=== PATIENT | male | born 1975 | race Caucasian/White ===

== ENCOUNTER 2018-09-20 17:57 | Emergency (ER) | payer SELFPAY ==
[2018-09-20 20:31] LABS: Absolute Lymphocytes (CBC) 2.6 K/uL (0.7-4.9); Absolute Monocytes 0.9 K/uL (0.1-1.3); Absolute Neutrophil 5.7 K/uL (1.8-8.0); Basophils % 1.2 % (0-1.3); Eosinophils % 3.1 % (0-4.4); Hematocrit 42.7 % (39.6-49.0); MPV 7.4 fL (7.6-11.3); Monocytes % 9.1 % (3.3-12.3)
[2018-09-20 20:48] LABS: BUN Blood Urea Nitrogen 10 mg/dL (7-18); Bicarbonate 31 mmol/L (21-32); Glucose Level 93 mg/dL (74-106); Potassium 4.3 mmol/L (3.5-5.1); Sodium Level 141 mmol/L (136-145)
--- NOTE | 2018-09-20 20:50 | RAD REPORT ---
EXAM DESCRIPTION: US - Extremity Nonvascular Limited - 09/20/2018 8:37 pm CLINICAL HISTORY: Right forearm mass COMPARISON: None FINDINGS: Patient has a palpable area within the right forearm. Ultrasound demonstrates a 5 millimeter heterogeneous structure with increased blood flow. This probab ly represents a lymph node. Edema is seen within the surrounding subcutaneous tissue. IMPRESSION: 5 millimeter palpable mass within the right forearm probably represents an inflamed/infe cted lymph node. Follow-up ultrasound in 1 month would be helpful to assess stability/resolution
[2018-09-20] MEDS ORDERED: CLINDAMYCIN 900MG/D5W 900 MG/50 ML IVPB IV ONE (21:25)
--- NOTE | 2018-09-20 21:52 | EDPHYS ---
Physician Documentation [facility] Name: Sean Gaffney Age: 43 yrs Sex: Male : 1975 Arrival Date: 09/20/2018 Time: 17:59 Bed 30 Private MD: ED Physician Theodore Moon HPI: 09/20 20:26 This 43 yrs old Male presents to ER via Ambulatory with complaints of Abscess.jmm 20:26 the patient presents with a swollen area of the right arm. Onset: The symptoms/episode jmm began/occurred gradually, 1 week(s) ago. Possible cause(s): unknown. This is a 43 year old male that presents to the ED with complaints of swelling and redness to his right forearm. Patient states having contact dermatitis approx 2 week ago which has not fully healed. . Historical: - Allergies: 18:04 No Known Allergies; tw2 - Home Meds: 18:04 None [Active]; tw2 - PMHx: 18:04 Seizures; tw2 - PSHx: 18:04 Hernia repair; tw2 - Immunization history:: Adult Immunizations unknown. - Social history:: Smoking status: Patient uses tobacco products, smokes one pack cigarettes per day. Patient uses alcohol, only on a social basis. - Ebola Screening: : Patient denies travel to an Ebola-affected area in the 21 days before illness onset. ROS: 20:26 Constitutional: Negative for fever, chills, and weight loss, Cardiovascular: Negative jmm for chest pain, palpitations, and edema, Respiratory: Negative for shortness of breath, cough, wheezing, and pleuritic chest pain. 20:26 Skin: Positive for erythema. 20:26 All other systems are negative. Exam: 20:26 Constitutional: This is a well developed, well nourished patient who is awake, alert, jmm and in no acute distress. Head/Face: atraumatic. Eyes: EOMI, no conjunctival erythema appreciated ENT: Moist Mucus Membranes Neck: Trachea midline, Supple Chest/axilla: Normal chest wall appearance and motion. Cardiovascular: Regular rate and rhythm. No edema appreciated Respiratory: Normal respirations, no respiratory distress appreciated Abdomen/GI: Non distended, soft Back: Normal ROM 20:26 Skin: multiple erythematous lesions noted to the right forearm, an area of erythema is noted to the mid forearm on the palmar side, TTP, full radial pulse, NVI. 20:26 Neuro: Orientation: is normal, Mentation: is normal, Memory: is normal. 20:26 Psych: Behavior/mood is pleasant, cooperative. Vital Signs: 18:03 BP 137 / 87; Pulse 88; Resp 17; Temp 98.5(O); Pulse Ox 99% on R/A; Weight 77.11 kg (R); tw2 Height 5 ft. 8 in. (172.72 cm); Pain 8/10; 21:56 BP 125 / 83; Pulse 79; Resp 18; Temp 98.3; Pulse Ox 99% ; rv 18:03 Body Mass Index 25.85 (77.11 kg, 172.72 cm) tw2 MDM: 20:04 Patient medically screened. [facility] 21:48 Data reviewed: vital signs, nurses notes. Counseling: I had a detailed discussion with [facility] the patient and/or guardian regarding: the historical points, exam findings, and any diagnostic results supporting the discharge/admit diagnosis, lab results, radiology results, the need for outpatient follow up, to return to the emergency department if symptoms worsen or persist or if there are any questions or concerns that arise at home. 09/20 20:05 Order name: CBC with Diff; Complete Time: 20:34 [facility] 09/20 20:05 Order name: BMP; Complete Time: 21:09 [facility] 09/20 20:05 Order name: Procalcitonin; Complete Time: 21:49 [facility] 09/20 20:05 Order name: Saline Lock; Complete Time: 21:20 [facility] 09/20 20:06 Order name: US Extrmty Nonvasular Limited; Complete Time: 21:09 [facility] Administered Medications: 21:20 Drug: Clindamycin 900 mg Route: IVPB; Infused Over: 30 mins; Site: left forearm; rv 21:55 Follow up: IV Status: Completed infusion; IV Intake: 50ml rv Disposition: 22:51 Co-signature as Attending Physician, Theodore Moon MD. Disposition: 09/20/18 21:50 Discharged to Home. Impression: Localized enlarged lymph nodes, Cellulitis of right upper limb. - Condition is Stable. - Discharge Instructions: Cellulitis, Adult, Lymphadenopathy. - Prescriptions for Clindamycin HCl 300 mg Oral Capsule - take 1 capsule by ORAL route every 6 hours for 10 days; 40 capsule. - Medication Reconciliation Form, Thank You Letter, Antibiotic Education, Prescription Opioid Use form. - Follow up: Private Physician; When: 2 - 3 days; Reason: Recheck today's complaints, Continuance of care, Re-evaluation by your physician. Signatures: Dispatcher [employer] EDMS Sohan Fraga PA PA jmm Wise, Tara, RN RN tw2 Theodore Moon MD MD Jai Watt RN RN rv Corrections: (The following items were deleted from the chart) 21:56 21:50 09/20/2018 21:50 Discharged to Home. Impression: Localized enlarged lymph nodes; rv Cellulitis of right upper limb. Condition is Stable. Forms are Medication Reconciliation Form, Thank You Letter, Antibiotic Education, Prescription Opioid Use. Follow up: Private Physician; When: 2 - 3 days; Reason: Recheck today's complaints, Continuance of care, Re-evaluation by your physician. ino
--- NOTE | 2018-09-20 21:52 | ER ---
Nurse's Notes [facility] Name: Sean Gaffney Age: 43 yrs Sex: Male : 1975 Arrival Date: 09/20/2018 Time: 17:59 Bed 30 Private MD: Diagnosis: Localized enlarged lymph nodes;Cellulitis of right upper limb Presentation: 09/20 18:02 Presenting complaint: Patient states: 2 or 3 days ago i felt it but now it has just tw2 gotten bigger and bigger and is painful, to my inner RIGHT arm. Presenting complaint: Patient states: "i had poison oak and i pick and scratch a lot". Transition of care: patient was not received from another setting of care. Onset of symptoms was September 20, 2018. Risk Assessment: Do you want to hurt yourself or someone else? Patient reports no desire to harm self or others. Initial Sepsis Screen: Does the patient meet any 2 criteria? No. Patient's initial sepsis screen is negative. Does the patient have a suspected source of infection? No. Patient's initial sepsis screen is negative. Care prior to arrival: None. 18:02 Method Of Arrival: Ambulatory tw2 18:02 Acuity: CHRISTINE 4 tw2 18:06 Note b/l arms have multiple sores in various stages of healing. tw2 Triage Assessment: 18:04 General: Appears in no apparent distress. Behavior is calm, cooperative, appropriate tw2 for age. Pain: Complains of pain in dorsal aspect of right forearm and palmar aspect of right forearm. Derm: Abscess located on dorsal aspect of right forearm and palmar aspect of right forearm is quarter sized, is hot to touch, is red, is raised. Historical: - Allergies: 18:04 No Known Allergies; tw2 - Home Meds: 18:04 None [Active]; tw2 - PMHx: 18:04 Seizures; tw2 - PSHx: 18:04 Hernia repair; tw2 - Immunization history:: Adult Immunizations unknown. - Social history:: Smoking status: Patient uses tobacco products, smokes one pack cigarettes per day. Patient uses alcohol, only on a social basis. - Ebola Screening: : Patient denies travel to an Ebola-affected area in the 21 days before illness onset. Screenin:36 Abuse screen: Denies threats or abuse. Denies injuries from another. Nutritional rv screening: No deficits noted. Tuberculosis screening: No symptoms or risk factors identified. Fall Risk None identified. Assessment: 19:35 General: Appears in no apparent distress. comfortable, Behavior is calm, cooperative. rv Pain: Complains of pain in right arm. Neuro: Level of Consciousness is awake, alert, obeys commands, Oriented to person, place, time, situation. Cardiovascular: Patient's skin is warm and dry. Respiratory: Airway is patent. GI: No signs and/or symptoms were reported involving the gastrointestinal system. : No signs and/or symptoms were reported regarding the genitourinary system. EENT: No signs and/or symptoms were reported regarding the EENT system. Derm: Abscess located on right arm has no drainage, is hot to touch, is red, is raised. Musculoskeletal: No signs and/or symptoms reported regarding the musculoskeletal system. Vital Signs: 18:03 BP 137 / 87; Pulse 88; Resp 17; Temp 98.5(O); Pulse Ox 99% on R/A; Weight 77.11 kg (R); tw2 Height 5 ft. 8 in. (172.72 cm); Pain 8/10; 21:56 BP 125 / 83; Pulse 79; Resp 18; Temp 98.3; Pulse Ox 99% ; rv 18:03 Body Mass Index 25.85 (77.11 kg, 172.72 cm) tw2 ED Course: 17:59 Patient arrived in ED. mr 18:03 Triage completed. tw2 18:05 Arm band placed on. tw2 19:35 Jai Watt, RN is Primary Nurse. rv 19:36 Patient has correct armband on for positive identification. Bed in low position. Call rv light in reach. Side rails up X 1. Pulse ox on. NIBP on. 19:56 Sohan Fraga PA is PHCP. m 19:56 Theodore Moon MD is Attending Physician. jmm 20:36 US Extrmty Nonvasular Limited In Process Unspecified. EDMS 21:20 Inserted saline lock: 22 gauge in left forearm, using aseptic technique. rv 21:56 No provider procedures requiring assistance completed. IV discontinued, intact, rv bleeding controlled, No redness/swelling at site. Pressure dressing applied. Administered Medications: 21:20 Drug: Clindamycin 900 mg Route: IVPB; Infused Over: 30 mins; Site: left forearm; rv 21:55 Follow up: IV Status: Completed infusion; IV Intake: 50ml rv Intake: 21:55 IV: 50ml; Total: 50ml. rv Outcome: 21:50 Discharge ordered by MD. mckinnon 21:56 Discharged to home ambulatory. rv 21:56 Condition: good 21:56 Discharge instructions given to patient, family, Instructed on discharge instructions, follow up and referral plans. medication usage, Demonstrated understanding of instructions, follow-up care, medications, Prescriptions given X 1. 21:56 Patient left the ED. rv Signatures: Dispatcher [employer] EDMS Sohan Fraga PA PA jmm Rivera, Mary mr Farideh Shelby RN RN tw2 Jai Watt RN RN rv
== END 2018-09-20 21:56 | disposition home or self-care (01) ==
LOC: ER 17:57
DX: L03.113 Cellulitis of right upper limb (principal); F17.210 Nicotine dependence, cigarettes, uncomplicated
CPT/HCPCS: 36415; 76882; 80048; 84145; 85025; 96365; 99284

== ENCOUNTER 2019-02-21 18:20 | Emergency (ER) | payer SELFPAY ==
[2019-02-21 19:59] LABS: Absolute Lymphocytes (CBC) 1.2 K/uL (0.7-4.9); Basophils % 0.5 % (0-1.3); Hematocrit 41.1 % (39.6-49.0); Lymphocytes % 11.3 % (15.3-44.8); MPV 7.9 fL (7.6-11.3); RBC Red Blood Cell Count 4.58 M/uL (4.33-5.43)
--- NOTE | 2019-02-21 20:19 | RAD REPORT ---
EXAM DESCRIPTION: Ribs Right - 02/21/2019 8:06 pm CLINICAL HISTORY: Right rib injury COMPARISON: None. FINDINGS: No displaced rib fracture is evident. No aggressive rib lesion. No underlying pneumothorax, effusion, infiltrate or pulmonary contusion. IMPRESSION: Negative right rib series.
[2019-02-21 20:26] LABS: ALT/SGPT 57 U/L (12-78); AST/SGOT 38 U/L (15-37); Alkaline Phosphatase 87 U/L (45-117); BUN Blood Urea Nitrogen 8 mg/dL (7-18); Bicarbonate 28 mmol/L (21-32); Bilirubin Direct 0.2 mg/dL (0-0.2); Bilirubin Total 0.5 mg/dL (0.2-1.0); Glucose Level 95 mg/dL (74-106); Sodium Level 142 mmol/L (136-145)
[2019-02-21 21:50] LABS: Protime INR 0.97
--- NOTE | 2019-02-21 22:00 | ER ---
Nurse's Notes [facility] Name: Sean Gaffney Age: 44 yrs Sex: Male : 1975 Arrival Date: 02/21/2019 Time: 18:29 Bed 4 Private MD: Diagnosis: Rib Contusion Presentation: 02/21 18:41 Presenting complaint: EMS states: pt went to check on a friend, PD was called out for iw trespassing, pt was uncooperative on scene, was restrained by police, had syringes on him, admitted to meth and ETOH use today, started c/o difficulty breathing, pt in NAD, VSS, appears to be sleeping, awakens easily to verbal stimuli. Transition of care: patient was not received from another setting of care. Onset of symptoms was February 21, 2019. Risk Assessment: Do you want to hurt yourself or someone else? Patient reports no desire to harm self or others. Initial Sepsis Screen: Does the patient meet any 2 criteria? No. Patient's initial sepsis screen is negative. Does the patient have a suspected source of infection? No. Patient's initial sepsis screen is negative. Care prior to arrival: Medication(s) given: Normal saline infusion, 500 mL, IV initiated. 18 GA, in the right antecubital area. 18:41 Method Of Arrival: EMS: [facility] iw 18:41 Acuity: CHRISTINE 3 iw Triage Assessment: 21:33 General: Appears in no apparent distress. unkempt, Behavior is drowsy. Respiratory: ak1 Reports shortness of breath at rest on exertion Onset: The symptoms/episode began/occurred at an unknown time. the patient has mild shortness of breath. Historical: - Allergies: 18:43 No Known Allergies; iw - Home Meds: 18:43 None [Active]; iw - PMHx: 18:43 Seizures; PTSD; iw - PSHx: 18:43 Hernia repair; iw - Immunization history:: Adult Immunizations unknown. - Ebola Screening: : Patient negative for fever greater than or equal to 101.5 degrees Fahrenheit, and additional compatible Ebola Virus Disease symptoms Patient denies exposure to infectious person Patient denies travel to an Ebola-affected area in the 21 days before illness onset No symptoms or risks identified at this time. - Social history:: Smoking status: unknown Patient uses street drugs, Methamphetamine (Meth). Screenin:37 Abuse screen: Denies threats or abuse. Denies injuries from another. Nutritional ak1 screening: No deficits noted. Tuberculosis screening: No symptoms or risk factors identified. Fall Risk None identified. Assessment: 19:37 General: Appears in no apparent distress. Behavior is drowsy. Pain: Complains of pain ak1 in ribs. Neuro: Level of Consciousness is alert, obeys commands, Oriented to person, place, time, situation, Lamination Spinner are equal bilaterally Speech is normal. Cardiovascular: No deficits noted. Respiratory: Airway is patent Respiratory effort is even, unlabored, Breath sounds are clear. GI: No signs and/or symptoms were reported involving the gastrointestinal system. : No signs and/or symptoms were reported regarding the genitourinary system. EENT: No signs and/or symptoms were reported regarding the EENT system. Derm: multiple healing wounds to body. Musculoskeletal: No signs and/or symptoms reported regarding the musculoskeletal system. 21:34 Reassessment: Patient appears in no apparent distress at this time. pt has been asked ak1 to urinate 3 separate times, urinal at bedside. Vital Signs: 18:43 BP 121 / 101; Pulse 89; Resp 16 S; Temp 98.9; Pulse Ox 98% on R/A; Weight 74.84 kg; iw Height 5 ft. 9 in. (175.26 cm); 20:37 BP 114 / 80; Pulse 91; Resp 14; Pulse Ox 98% on R/A; ak1 21:32 BP 126 / 99; Pulse 95; Resp 16; Pulse Ox 97% on R/A; ak1 18:43 Body Mass Index 24.37 (74.84 kg, 175.26 cm) ED Course: 18:29 Patient arrived in ED. iw 18:43 Triage completed. iw 18:43 Arm band placed on. 19:03 Sohan Fraga PA is PHCP. [facility] 19:03 Javier Huddleston MD is Attending Physician. [facility] 19:21 Marilou Bae, RN is Primary Nurse. ak1 19:37 Patient has correct armband on for positive identification. Bed in low position. TRESA YAÑEZ ak1 officer at bedside. 19:37 Initial lab(s) drawn, by me, sent to lab. EKG done, by ED staff, reviewed by Javier Huddleston MD. Inserted saline lock: 22 gauge in right hand, using aseptic technique. Blood collected. 18G to right AC from EMS infiltrated. 20:06 Ribs Right XRAY In Process Unspecified. EDMS 21:32 Notified Nurse Practitioner and/or Physician Line Service Technician of a critical lab result(s), [facility] Rapid HIV negative. 22:18 No provider procedures requiring assistance completed. ak1 22:18 IV discontinued, intact, bleeding controlled, No redness/swelling at site. Pressure ak1 dressing applied. Administered Medications: No medications were administered Outcome: 21:58 Discharge ordered by . ino 22:18 Discharged to Law Enforcement ak1 22:18 Condition: improved 22:18 Discharge instructions given to police, Instructed on discharge instructions, follow up and referral plans. Demonstrated understanding of instructions, follow-up care. 22:18 Patient left the ED. ak1 Signatures: Dispatcher [employer] EDMS Sohan Fraga PA PA jmm Chretien, Felicia, RN RN fc Williams, Irene, RN RN Marilou Bae RN RN ak1
--- NOTE | 2019-02-21 22:00 | EDPHYS ---
Physician Documentation [facility] Name: Sean Gaffney Age: 44 yrs Sex: Male : 1975 Arrival Date: 02/21/2019 Time: 18:29 Bed 4 Private MD: ED Physician Javier Huddleston HPI: 02/21 19:13 This 44 yrs old Male presents to ER via EMS with complaints of Breathing jmm Difficulty, Drug Abuse. 19:13 The patient or guardian reports chest pain that is located primarily in the left jmm lateral anterior chest and left lateral posterior chest. Onset: The symptoms/episode began/occurred acutely, just prior to arrival. The pain does not radiate. This is a 44 year old male with a history of seizures, PTSD that presents to the ED with complaints of right sided rib pain. Patient was retrained by PD. Patient then developed SOB. . Patient states having possession of needles but denies sharing needles with others. . Historical: - Allergies: 18:43 No Known Allergies; iw - Home Meds: 18:43 None [Active]; iw - PMHx: 18:43 Seizures; PTSD; iw - PSHx: 18:43 Hernia repair; iw - Immunization history:: Adult Immunizations unknown. - Ebola Screening: : Patient negative for fever greater than or equal to 101.5 degrees Fahrenheit, and additional compatible Ebola Virus Disease symptoms Patient denies exposure to infectious person Patient denies travel to an Ebola-affected area in the 21 days before illness onset No symptoms or risks identified at this time. - Social history:: Smoking status: unknown Patient uses street drugs, Methamphetamine (Meth). ROS: 19:13 Constitutional: Negative for fever, chills, and weight loss. jmm 19:13 Abdomen/GI: Negative for abdominal pain, nausea, vomiting, diarrhea, and constipation, Back: Negative for injury and pain. 19:13 Cardiovascular: Positive for chest pain, with movement. 19:13 Respiratory: Positive for shortness of breath. 19:13 All other systems are negative. Exam: 19:13 Head/Face: atraumatic. Eyes: EOMI, no conjunctival erythema appreciated ENT: Moist jmm Mucus Membranes Neck: Trachea midline, Supple 19:13 Cardiovascular: Regular rate and rhythm. No edema appreciated Respiratory: Normal respirations, no respiratory distress appreciated Abdomen/GI: Non distended, soft Back: Normal ROM MS/ Extremity: Moves all extremities, no obvious deformities appreciated, no edema noted to the lower extremities Neuro: Awake and alert, normal gait Psych: Behavior is normal, Mood is normal, Patient is cooperative and pleasant 19:13 Constitutional: The patient appears in no acute distress, alert, awake. 19:13 Chest/axilla: Palpation: tenderness, that is moderate, of the left lateral anterior chest and left lateral posterior chest. Vital Signs: 18:43 BP 121 / 101; Pulse 89; Resp 16 S; Temp 98.9; Pulse Ox 98% on R/A; Weight 74.84 kg; iw Height 5 ft. 9 in. (175.26 cm); 20:37 BP 114 / 80; Pulse 91; Resp 14; Pulse Ox 98% on R/A; ak1 21:32 BP 126 / 99; Pulse 95; Resp 16; Pulse Ox 97% on R/A; ak1 18:43 Body Mass Index 24.37 (74.84 kg, 175.26 cm) iw MDM: 19:14 Patient medically screened. [facility] 21:57 Data reviewed: vital signs, nurses notes. Counseling: I had a detailed discussion with ino the patient and/or guardian regarding: the historical points, exam findings, and any diagnostic results supporting the discharge/admit diagnosis, lab results, radiology results, the need for outpatient follow up, to return to the emergency department if symptoms worsen or persist or if there are any questions or concerns that arise at home. 02/21 19:13 Order name: Acetaminophen; Complete Time: 20:41 [facility] 02/21 19:13 Order name: Basic Metabolic Panel; Complete Time: 20:41 [facility] 02/21 19:13 Order name: CBC with Diff; Complete Time: 20:23 [facility] 02/21 19:13 Order name: ETOH Level; Complete Time: 20:56 [facility] 02/21 19:13 Order name: Hepatic Function; Complete Time: 20:41 [facility] 02/21 19:13 Order name: PT-INR; Complete Time: 22:16 [facility] 02/21 19:13 Order name: Ptt, Activated; Complete Time: 22:16 [facility] 02/21 19:13 Order name: Salicylate; Complete Time: 20:35 [facility] 02/21 19:13 Order name: Urine Drug Screen [facility] 02/21 19:13 Order name: EKG; Complete Time: 19:14 [facility] 02/21 19:13 Order name: Ribs Right XRAY; Complete Time: 20:23 [facility] 02/21 19:57 Order name: Hepatitis Panel,Acute [facility] 02/21 19:57 Order name: HIV (1; Complete Time: 21:52 [facility] 02/21 22:12 Order name: Urine Dipstick--Ancillary (enter results) ar5 02/21 19:13 Order name: EKG - Nurse/Tech; Complete Time: 19:17 [facility] 02/21 19:13 Order name: IV Saline Lock; Complete Time: 19:17 [facility] 02/21 19:13 Order name: Labs collected and sent; Complete Time: 19:37 [facility] 02/21 19:13 Order name: Urine Dipstick-Ancillary (obtain specimen); Complete Time: 22:04 [facility] Administered Medications: No medications were administered Disposition: 02/22 06:52 Co-signature as Attending Physician, Javier Huddleston MD I agree with the assessment and kdr plan of care. Disposition: 02/21/19 21:58 Discharged to Home. Impression: Rib Contusion. - Condition is Stable. - Discharge Instructions: Rib Contusion. - Medication Reconciliation Form, Thank You Letter, Antibiotic Education, Prescription Opioid Use form. - Follow up: Private Physician; When: 2 - 3 days; Reason: Recheck today's complaints, Continuance of care, Re-evaluation by your physician. Signatures: Dispatcher [employer] [facility] Javier Huddleston MD MD kdr Mickail, Joel, PA PA [facility] Ivett Vieira RN RN Marilou Gilmore RN RN ak1 Corrections: (The following items were deleted from the chart) 02/21 22:18 21:58 02/21/2019 21:58 Discharged to Home. Impression: Rib Contusion. Condition is ak1 Stable. Forms are Medication Reconciliation Form, Thank You Letter, Antibiotic Education, Prescription Opioid Use. Follow up: Private Physician; When: 2 - 3 days; Reason: Recheck today's complaints, Continuance of care, Re-evaluation by your physician. [facility]
[2019-02-21 22:19] LABS: Urine Blood TRACE (NEG); Urine Glucose NEGATIVE (NEG); Urine Protein 2+ (NEG); Urine Specific Gravity >1.030 (1.005-1.030); Urine pH 6.5 (5.0-7.0)
[2019-02-21 22:45] LABS: Barbiturates NEGATIVE (NEGATIVE); Benzodiazepines POSITIVE (NEGATIVE); Cocaine NEGATIVE (NEGATIVE); METHAMPHETAM POSITIVE (NEGATIVE); Methadone NEGATIVE (NEGATIVE); Opiates NEGATIVE (NEGATIVE); Phencyclidine NEGATIVE (NEGATIVE); THC Cannibis POSITIVE (NEGATIVE)
[2019-02-21 23:03] VITALS: TEMP 98.9
[2019-02-21 23:06] VITALS: BP 126/99; O2SAT 97
--- NOTE | 2019-02-22 07:23 | EKG ---
Test Date: 2019-02-21 Test Time: 19:11:35 Cash Controller: MODEST[place] MEASUREMENT RESULTS: Intervals: Rate: 105 NC: 154 QRSD: 94 QT: 378 QTc: 499 [facility]: P: 73 NC: 154 QRS: 51 T: 58 INTERPRETIVE STATEMENTS: Sinus tachycardia Otherwise normal ECG No previous ECG available for comparison Electronically Signed On 02-22-19 07:21:55 CDT by Werner Moses
[2019-02-26 21:11] LABS: HBsAG Nonreactive (Nonreactive)
== END 2019-02-21 22:18 | disposition home or self-care (01) ==
LOC: ER 18:20
DX: S20.219A Contusion of unspecified front wall of thorax, initial encounter (principal); X58.XXXA Exposure to other specified factors, initial encounter; Y93.89 Activity, other specified; Y92.9 Unspecified place or not applicable
CPT/HCPCS: 36415; 80048; 80074; 80076; 80307; 80320; 80329; 81003; 85025; 85610; 85730; 87522; 93005; 99284; G0433